=== PATIENT | male | born 1995 | race African-American/Black ===

== ENCOUNTER 2019-12-01 20:51 | Emergency (ER) | payer SELFPAY ==
[~2019-12-01] VITALS: Ht 182.9 cm; Wt 63.5 kg
[2019-12-01 20:57] VITALS: BP 136/93
== END 2019-12-02 01:35 | disposition left against medical advice (07) ==
LOC: ER 20:52
DX: K08.89 Other specified disorders of teeth and supporting structures (principal); Z53.21 Procedure and treatment not carried out due to patient leaving prior to being seen by health care provider

== ENCOUNTER → 2020-01-01 | Emergency (ER) | payer SELFPAY ==
[~2020-01-01] VITALS: Ht 185.4 cm; Wt 63.5 kg
[~2020-01-01] MED LIST: KETOROLAC TROMETH 60MG/2ML VIAL IM ONE; methylPREDNISolone SOD SUCC 125 MG/2 ML VL IM ONE
[2020-01-01 07:54] VITALS: BP 144/87
== END | disposition home or self-care (01) ==
LOC: ER 07:29
DX: K02.9 Dental caries, unspecified (principal)
CPT/HCPCS: 96372; 99284; J1885; J2930

== ENCOUNTER 2020-11-25 03:25 | Emergency (ER) | payer MEDICAID, OTHER ==
[~2020-11-25] VITALS: Ht 182.9 cm; Wt 68.0 kg
[2020-11-25 04:36] VITALS: BP 154/82
[2020-11-25] MEDS ORDERED: AMOXICILLIN/CLAVUL 875 MG TAB PO ONE (05:00)
[2020-11-25] MEDS ORDERED: KETOROLAC TROMETH 60MG/2ML VIAL IM ONE (05:00)
== END 2020-11-25 05:56 | disposition home or self-care (01) ==
LOC: ER 03:31
DX: S02.5XXA Fracture of tooth (traumatic), initial encounter for closed fracture (principal); K04.7 Periapical abscess without sinus; F12.10 Cannabis abuse, uncomplicated; F17.210 Nicotine dependence, cigarettes, uncomplicated; X58.XXXA Exposure to other specified factors, initial encounter; Y93.89 Activity, other specified; Y92.89 Other specified places as the place of occurrence of the external cause; Y99.8 Other external cause status
CPT/HCPCS: 96372; 99283; J1885

== ENCOUNTER 2021-05-12 11:39 | Emergency (ER) | payer OTHER ==
[~2021-05-12] VITALS: Ht 182.9 cm; Wt 65.8 kg
[2021-05-12 14:08] VITALS: BP 124/75
== END 2021-05-12 14:41 | disposition home or self-care (01) ==
LOC: ER 11:39
DX: S62.664A Nondisplaced fracture of distal phalanx of right ring finger, initial encounter for closed fracture (principal); S62.636A Displaced fracture of distal phalanx of right little finger, initial encounter for closed fracture; F17.210 Nicotine dependence, cigarettes, uncomplicated; W20.8XXA Other cause of strike by thrown, projected or falling object, initial encounter; Y93.89 Activity, other specified; Y92.89 Other specified places as the place of occurrence of the external cause; Y99.8 Other external cause status
CPT/HCPCS: 29125; 73130